=== PATIENT | female | born 1965 | race Caucasian/White ===

== ENCOUNTER 2016-07-08 10:38 | Emergency (ER) | payer SELFPAY ==
--- NOTE | 2016-07-08 11:41 | ER Document Report ---
ED Extremity Problem, Lower - General Chief Complaint: Leg Pain Stated Complaint: RIGHT LEG PAIN Mode of Arrival: Ambulatory Information source: Patient TRAVEL OUTSIDE OF THE [place] IN LAST 30 DAYS: No - HPI Patient complains to provider of: Pain Notes: The patient arrives with complaints of right cesar pain for the last 2 weeks. She denies any injury. She states that the pain seems to get worse when she is driving her car and flexing her foot. She denies any pain with touching the area. She denies any leg swelling. She denies any fever or redness. No rash. She denies any traumatic injury. She denies any nausea, vomiting, diarrhea. She denies any recent trips, recent surgeries, no hormones, no cancer, no history of DVT or PE, no chest pain or shortness of breath. She denies any numbness, tingling, weakness. No nausea vomiting diarrhea. - Related Data Allergies/Adverse Reactions: No Known Allergies Allergy (Verified 07/08/16 10:51) Past Medical History - Social History Smoking Status: Current Every Day Smoker Chew tobacco use (# tins/day): No Frequency of alcohol use: Social Drug Abuse: None Family History: Reviewed & Not Pertinent Patient has suicidal ideation: No Patient has homicidal ideation: No Renal/ Medical History: Denies: Hx Peritoneal Dialysis Past Surgical History: Reports: Hx Hysterectomy, Hx Orthopedic Surgery - Rt Shoulder, lower lumbar - Immunizations Hx Diphtheria, Pertussis, Tetanus Vaccination: Yes Review of Systems - Review of Systems -: Yes All other systems reviewed and negative Physical Exam - Vital signs Vitals: Temp Pulse Resp BP Pulse Ox 98.0 F 63 17 104/71 99 07/08/16 10:52 07/08/16 10:52 07/08/16 10:52 07/08/16 10:52 07/08/16 10:52 - Notes Notes: GENERAL: alert, cooperative, nontoxic, no distress. HEAD: normocephalic, atraumatic EYES: conjunctiva pink without discharge, no external redness or swelling. EARS: no external swelling, no external redness NOSE: atraumatic, no external swelling MOUTH/THROAT: mucous membranes moist and pink NECK: soft, supple, full range of motion, no meningismus. CHEST: no distress, lungs clear and equal throughout. No wheezing, rales, rhonchi. CARDIAC: regular rate and rhythm, no murmur, normal capillary refill, normal pulses. BACK: full range of motion, no CVA tenderness. EXTREMITIES: full range of motion of all extremities. No redness, no swelling. Patient has some mild tenderness to palpation to the right anterior cesar. There is no redness. No leg swelling otherwise. There is no calf tenderness. Normal pulse and sensation distally. No rash. NEURO: alert and oriented 3, no focal deficits, full range of motion of all extremities. PYSCH: appropriate mood, affect. Patient is cooperative. SKIN: pink, warm, dry, no rash. Course - Re-evaluation Re-evalutation: 07/08/16 12:20 Patient is nontoxic. Stable vitals. The patient has had anterior right cesar pain mainly when she is driving or dorsiflexing her foot for the last few weeks. The pain seems to be getting worse. She has no DVT risk factors and has no posterior calf pain tenderness or swelling. X-rays of the tib-fib show no acute abnormality. Possible she could be having an intermittent compartment syndrome in the cesar. This also potentially could be cesar splints. She has been dealing with this for several weeks, therefore think she warrants an orthopedic visit. Patient will be discharged home with NSAIDs and Ultram. Orthopedic referral. Follow-up with orthopedic in next available appointment. Follow-up sooner for increased pain, fever, redness, swelling, pain in the posterior calf, or any further concerns. The patient's emergency department workup and current diagnosis were explained to the patient and or family. Follow-up instructions were provided. Medications if prescribed were discussed. Instructions for when to return to the emergency department including specific worrisome symptoms were discussed with the patient and/or family. - Vital Signs Vital signs: Temp Pulse Resp BP Pulse Ox 98.0 F 63 17 104/71 99 07/08/16 10:52 07/08/16 10:52 07/08/16 10:52 07/08/16 10:52 07/08/16 10:52 Discharge - Discharge Clinical Impression: Pain in right cesar Condition: Stable Disposition: HOME, SELF-CARE Instructions: Leg Pain Nonspecific ([facility]) Additional Instructions: Take medications as prescribed. Apply ice to sore area. Try stretching your cesar. Awan with or so at the next available appointment. Follow-up sooner for increased pain, fever, redness, swelling, chest pain, shortness of breath, or any further concerns. Prescriptions: Diclofenac Sodium [Voltaren] 75 mg PO BID #20 tablet. Tramadol HCl [Ultram] 50 mg PO TID PRN #10 tablet PRN Reason:
[2016-07-08 12:58] VITALS: BP 107/57
== END 2016-07-08 12:55 | disposition home or self-care (01) ==
LOC: ER 10:38
DX: M79.604 Pain in right leg (principal); F17.200 Nicotine dependence, unspecified, uncomplicated; Z90.710 Acquired absence of both cervix and uterus
CPT/HCPCS: 99283

== ENCOUNTER 2016-09-20 23:01 | Emergency (ER) | payer SELFPAY ==
[2016-09-20 23:07] VITALS: BP 132/73
[2016-09-20] MEDS ORDERED: NAPROXEN 250 MG TABLET PO ONE (23:14)
--- NOTE | 2016-09-20 23:17 | ER Document Report ---
ED Extremity Problem, Lower - General Chief Complaint: Knee Pain Stated Complaint: FALL/KNEE PAIN Time Seen by Provider: 09/20/16 23:13 Notes: The patient is a 51-year-old female who presents with 2 weeks of right knee pain after she fell on it. She noticed swelling after the incident, but this has improved. She is using anti-inflammatories, ice, a knee brace and crutches intermittently for pain control. She denies numbness, tingling, open wounds, swelling, fevers or redness. TRAVEL OUTSIDE OF THE [place] IN LAST 30 DAYS: No - Related Data Allergies/Adverse Reactions: No Known Allergies Allergy (Verified 07/08/16 10:51) Past Medical History - General Information source: Patient - Social History Smoking Status: Unknown if Ever Smoked Family History: Reviewed & Not Pertinent Patient has suicidal ideation: No Patient has homicidal ideation: No Renal/ Medical History: Denies: Hx Peritoneal Dialysis Past Surgical History: Reports: Hx Hysterectomy, Hx Orthopedic Surgery - Rt Shoulder, lower lumbar - Immunizations Hx Diphtheria, Pertussis, Tetanus Vaccination: Yes Review of Systems - Review of Systems Notes: REVIEW OF SYSTEMS: CONSTITUTIONAL: -fevers, -chills EENT: -eye pain, -difficulty swallowing, -nasal congestion CARDIOVASCULAR:-chest pain, -syncope. RESPIRATORY: -cough, -SOB GASTROINTESTINAL: -abdominal pain, - nausea, -vomiting, -diarrhea GENITOURINARY: -dysuria, -hematuria MUSCULOSKELETAL: +right knee pain, -back pain, -neck pain SKIN: -rash or skin lesions. HEMATOLOGIC: -easy bruising or bleeding. LYMPHATIC: -swollen, enlarged glands. NEUROLOGICAL: -altered mental status or loss of consciousness, -headache, - neurologic symptoms PSYCHIATRIC: -anxiety, -depression. ALL OTHER SYSTEMS REVIEWED AND NEGATIVE. Physical Exam - Vital signs Vitals: Temp Pulse Resp BP Pulse Ox 98.1 F 87 18 132/73 H 96 09/20/16 23:05 09/20/16 23:05 09/20/16 23:05 09/20/16 23:05 09/20/16 23:05 - Notes Notes: PHYSICAL EXAMINATION: GENERAL: Well-appearing, well-nourished and in no acute distress. HEAD: Atraumatic, normocephalic. EYES: Pupils equal round and reactive to light, extraocular movements intact, sclera anicteric, conjunctiva are normal. ENT: nares patent, oropharynx clear without exudates. Moist mucous membranes. NECK: Normal range of motion, supple without lymphadenopathy LUNGS: Breath sounds clear to auscultation bilaterally and equal. No wheezes rales or rhonchi. HEART: Regular rate and rhythm without murmurs ABDOMEN: Soft, nontender, normoactive bowel sounds. No guarding, no rebound. No masses appreciated. EXTREMITIES: Mild swelling and effusion of right knee. No open wounds or erythema, non-tender knee. NEUROLOGICAL: Cranial nerves grossly intact. Normal speech, normal gait. Normal sensory and motor exams. PSYCH: Normal mood, normal affect. SKIN: Warm, Dry, normal turgor, no rashes or lesions noted. Course - Re-evaluation Re-evalutation: No evidence of a septic joint and no fractures on x-ray. Patient has evidence of a mild knee effusion after fall. Instructed her to continue anti- inflammatories, ice and knee brace and follow-up with orthopedics. She understands. - Vital Signs Vital signs: Temp Pulse Resp BP Pulse Ox 98.1 F 87 18 132/73 H 96 09/20/16 23:05 09/20/16 23:05 09/20/16 23:05 09/20/16 23:05 09/20/16 23:05 - Diagnostic Test Radiology reviewed: Image reviewed, Reports reviewed Radiology results interpreted by me: Right knee x-ray: small joint effusion Discharge - Discharge Clinical Impression: Knee effusion, right Contusion of right knee Qualifiers: Encounter type: initial encounter Qualified Code(s): S80.01XA - Contusion of right knee, initial encounter Condition: Stable Disposition: HOME, SELF-CARE Additional Instructions: Knee Effusion You have a fluid collection in the knee joint, called an effusion. This fluid build up can occur from irritation of the synovial membrane lining the knee joint or from a more serious injury to the knee. Irritation of the membrane can occur from excessive, repetitive knee activitiy, like kneeling or squatting for extended periods or even just excessive walking, jogging, or skiing. Effusions also can occur with infections in the joint and with some arthritic conditions, especially gout. Fluid collections in these situations are usually yellow in color and either clear or cloudy in appearance. Significant injury to the knee can result in fluid collection which is partly or entirely blood and this condition is known as a hemarthrosis of the knee joint. If the fluid collection is not too large and/or painful, it can be managed conservatively with rest, ice packs, and anti-inflammatory and pain medications as needed. If the fluid collection is large and very painful, the knee joint can be drained (aspirated) by a relatively minor procedure of inserting a needle in the joint and removing some or all of the fluid present. If your knee was aspirated, you should rest it as much as possible for a few days, keep a pressure dressing around the knee and apply ice packs for at least 48 - 72 hours. If there are signs of developing infection such as heat and redness of the knee, fever, etc. you should return immediately for a recheck. Contusion Your injury has resulted in a contusion -- a crushing of the deep tissues. No injury to important structures was detected during the physician's exam. Contusions vary in the amount of pain they cause, and in the length of time required for healing. Typically, the area will become bruised, and will remain painful to touch for two or three weeks. However, most patients are back to working and playing within a few days. After the initial period of rest and cold-packs, your symptoms (together with the doctor's recommendations) will determine how rapidly you can get back to full activity. Usually this means "do what feels okay, but don't do things that hurt." If re-examination was recommended, it's important to follow up as instructed. Call the doctor or return any time if pain increases, if swelling becomes severe, if you develop numbness or weakness in an injured extremity, or if any other alarming symptoms occur. Referrals: LAKIA SHERIDAN MD [ACTIVE STAFF] - Follow up as needed
--- NOTE | 2016-09-20 23:49 | RADIOLOGY REPORT (SQ) ---
EXAM DESCRIPTION: KNEE RIGHT 3 VIEWS COMPLETED DATE/TIME: 09/20/2016 11:29 pm REASON FOR STUDY: right knee pain COMPARISON: None. NUMBER OF VIEWS: Three views. TECHNIQUE: AP, lateral, and sunrise patella radiographic images acquired of the right knee. LIMITATIONS: None. FINDINGS: MINERALIZATION: Normal. BONES: No acute fracture or dislocation. No worrisome bone lesions. JOINT: Small joint effusion. SOFT TISSUES: No soft tissue swelling. No radio-opaque foreign body. OTHER: No other significant finding. IMPRESSION: SMALL JOINT EFFUSION. NO SIGNIFICANT BONY FINDINGS. TECHNICAL DOCUMENTATION: JOB ID: [id number] [employer]- All Rights Reserved
== END 2016-09-20 23:50 | disposition home or self-care (01) ==
LOC: ER 23:01
DX: S80.01XA Contusion of right knee, initial encounter (principal); M25.461 Effusion, right knee; M25.561 Pain in right knee; W19.XXXA Unspecified fall, initial encounter
CPT/HCPCS: 99283

== ENCOUNTER 2016-12-25 23:16 | Emergency (ER) | payer SELFPAY ==
[2016-12-26] MEDS ORDERED: HYDROMORPHONE HCL INJ/PF 2 MG/ML AMPULE IV ONE (00:38)
[2016-12-26] MEDS ORDERED: ONDANSETRON HCL INJ/PF 4 MG/2 ML SDV IV ONE (00:38)
--- NOTE | 2016-12-26 00:48 | ER Document Report ---
ED General - General Chief Complaint: Possible Kidney Stone Stated Complaint: POSSIBLE KIDNEY STONE Time Seen by Provider: 12/26/16 00:30 Mode of Arrival: Ambulatory Information source: Patient TRAVEL OUTSIDE OF THE [place] IN LAST 30 DAYS: No - HPI Notes: Patient is a 51-year-old female history of previous kidney stones, lumbar surgery and gastric lap band surgery presents with report of right flank pain intermittent and crampy consistent with previous history of kidney stones. Patient denies any numbness, paresthesia, nausea, incontinence, back injury acutely. - Related Data Allergies/Adverse Reactions: No Known Allergies Allergy (Verified 07/08/16 10:51) Past Medical History - Social History Smoking Status: Current Every Day Smoker Frequency of alcohol use: None Drug Abuse: None Lives with: Family Family History: Reviewed & Not Pertinent Patient has suicidal ideation: No Patient has homicidal ideation: No Pulmonary Medical History: Reports: Hx Asthma Renal/ Medical History: Denies: Hx Peritoneal Dialysis Past Surgical History: Reports: Hx Hysterectomy, Hx Orthopedic Surgery - Rt Shoulder, lower lumbar - Immunizations Hx Diphtheria, Pertussis, Tetanus Vaccination: Yes Review of Systems - Review of Systems Notes: REVIEW OF SYSTEMS: CONSTITUTIONAL : Denies fever, chills, or sweats. Denies recent illness. EENT: Denies eye, ear, throat, or mouth pain or symptoms. Denies nasal or sinus congestion or discharge. Denies throat, tongue, or mouth swelling or difficulty swallowing. CARDIOVASCULAR: Denies chest pain. Denies palpitations or racing or irregular heart beat. Denies ankle edema. RESPIRATORY: Denies cough, cold, or chest congestion. Denies shortness of breath, difficulty breathing, or wheezing. GASTROINTESTINAL: Denies abdominal pain or distention. Denies nausea, vomiting , or diarrhea. Denies blood in vomitus, stools, or per rectum. Denies black, tarry stools. Denies constipation. GENITOURINARY: Denies difficulty urinating, painful urination, burning, frequency, blood in urine, or discharge. FEMALE GENITOURINARY: Denies vaginal bleeding, heavy or abnormal periods, irregular periods. Denies vaginal discharge or odor. MUSCULOSKELETAL: Denies neck pain or stiffness. Denies joint pain or swelling. SKIN: Denies rash, lesions or sores. HEMATOLOGIC : Denies easy bruising or bleeding. LYMPHATIC: Denies swollen, enlarged glands. NEUROLOGICAL: Denies confusion or altered mental status. Denies passing out or loss of consciousness. Denies dizziness or lightheadedness. Denies headache. Denies weakness or paralysis or loss of use of either side. Denies problems with gait or speech. Denies sensory loss, numbness, or tingling. Denies seizures. PSYCHIATRIC: Denies anxiety or stress. Denies depression, suicidal ideation, or homicidal ideation. ALL OTHER SYSTEMS REVIEWED AND NEGATIVE. Dictation was performed using [employer] voice recognition software Physical Exam - Vital signs Vitals: Temp Pulse Resp BP Pulse Ox 97.7 F 71 16 120/72 97 12/25/16 23:36 12/25/16 23:36 12/25/16 23:36 12/25/16 23:36 12/25/16 23:36 - Notes Notes: PHYSICAL EXAMINATION: GENERAL: Well-appearing, well-nourished and in no acute distress. HEAD: Atraumatic, normocephalic. EYES: Pupils equal round and reactive to light, extraocular movements intact, conjunctiva are normal. ENT: Nares patent, oropharynx clear without exudates. Moist mucous membranes. NECK: Normal range of motion, supple without lymphadenopathy LUNGS: Breath sounds clear to auscultation bilaterally and equal. No wheezes rales or rhonchi. HEART: Regular rate and rhythm without murmurs ABDOMEN: Soft, nontender, nondistended abdomen. No guarding, no rebound. No masses appreciated. Port site right mid abdomen from lap band surgery appears appropriate. Female : deferred Musculoskeletal: Normal range of motion, no pitting or edema. No cyanosis. Right CVA tenderness. No midline tenderness. The patient does have a midline lumbar surgical scar which is well-healed. NEUROLOGICAL: Cranial nerves grossly intact. Normal speech, normal gait. Normal sensory, motor exams PSYCH: Normal mood, normal affect. SKIN: Warm, Dry, normal turgor, no rashes or lesions noted. Course - Re-evaluation Re-evalutation: 12/26/16 00:48 Patient was given IV Zofran and Dilaudid with adequate relief of pain. No evidence for renal stone or aneurysm or diverticulitis or UTI. Findings fit with a back strain. There is no radiation down the legs or incontinence suggestive for acute herniated disc pathology. 12/26/16 02:09 - Vital Signs Vital signs: Temp Pulse Resp BP Pulse Ox 97.7 F 71 16 120/72 97 12/25/16 23:36 12/25/16 23:36 12/25/16 23:36 12/25/16 23:36 12/25/16 23:36 - Laboratory Result Diagrams: 12/26/16 00:45 12/26/16 00:45 Laboratory results interpreted by me: 12/26/16 12/26/16 00:45 00:45 Hgb 15.7 H MCHC 36.1 H Sodium 147.9 H Glucose 114 H Discharge - Discharge Clinical Impression: Renal cyst Back strain Qualifiers: Encounter type: initial encounter Qualified Code(s): S39.012A - Strain of muscle, fascia and tendon of lower back, initial encounter Condition: Stable Disposition: HOME, SELF-CARE Instructions: Low Back Pain ([facility]) Prescriptions: Ibuprofen 800 mg PO Q8HP PRN #30 tablet PRN Reason: Cyclobenzaprine HCl [Flexeril 10 mg Tablet] 10 mg PO TIDP PRN #25 tab PRN Reason:
[2016-12-26 01:02] LABS: ABSOLUTE BASOPHILS # (AUTO) 0.1 10^3/uL (0.0-0.2); ABSOLUTE EOSINOPHILS # (AUTO) 0.2 10^3/uL (0.0-0.6); ABSOLUTE LYMPHOCYTES (AUTO) 2.4 10^3/uL (0.5-4.7); ABSOLUTE MONOCYTES (AUTO) 0.4 10^3/uL (0.1-1.4); ABSOLUTE NEUT (AUTO) 4.3 10^3/uL (1.7-8.2); BASOPHILS % (AUTO) 0.9 % (0-2); EOSINOPHILS % (AUTO) 2.3 % (0-6); HEMATOCRIT 43.6 % (36.0-47.0); HEMOGLOBIN 15.7 g/dL (12.0-15.5); HGB HCT DIFFERENCE 3.5; MEAN CORPUSCULAR HEMOGLOBIN 31.4 pg (27.0-33.4); MEAN CORPUSCULAR HGB CONC 36.1 g/dL (32.0-36.0); MEAN CORPUSCULAR VOLUME 87 fl (80-97); MONOCYTES % (AUTO) 5.4 % (3-13); RED BLOOD COUNT 5.01 10^6/uL (3.72-5.28); SEGMENTED NEUTROPHILS % (AUTO) 58.4 % (42-78); WHITE BLOOD COUNT 7.3 10^3/uL (4.0-10.5)
[2016-12-26 01:15] LABS: APPEARANCE,URINE SLIGHTLY-CLOUDY; BILIRUBIN,URINE NEGATIVE (NEGATIVE); GLUCOSE, URINE NEGATIVE (NEGATIVE); KETONES,URINE NEGATIVE (NEGATIVE); LEUKOCYTE ESTERASE,URINE NEGATIVE (NEGATIVE); NITRITE,URINE NEGATIVE (NEGATIVE); PROTEIN,URINE NEGATIVE (NEGATIVE); URINE SPECIFIC GRAVITY 1.028; UROBILINOGEN,URINE NEGATIVE mg/dL (<2.0)
[2016-12-26 01:18] LABS: ALANINE AMINOTRANSFERASE 40 U/L (9-52); ALBUMIN 4.9 g/dL (3.5-5.0); ALKALINE PHOSPHATASE 74 U/L (38-126); ANION GAP 16 (5-19); ASPARTATE AMINO TRANSFERASE 23 U/L (14-36); BILIRUBIN,DIRECT 0.3 mg/dL (0.0-0.4); BILIRUBIN,TOTAL 0.6 mg/dL (0.2-1.3); BLOOD UREA NITROGEN 20 mg/dL (7-20); CALCIUM 9.5 mg/dL (8.4-10.2); CARBON DIOXIDE 27 mmol/L (22-30); CHLORIDE 105 mmol/L (98-107); CREATININE RESULT 0.66 mg/dL (0.52-1.25); GLUCOSE 114 mg/dL (75-110); LIPASE 49.5 U/L (23-300); POTASSIUM 4.1 mmol/L (3.6-5.0); SODIUM 147.9 mmol/L (137-145); TOTAL PROTEIN 7.9 g/dL (6.3-8.2)
--- NOTE | 2016-12-26 01:29 | RADIOLOGY REPORT (SQ) ---
EXAM DESCRIPTION: CT LTD RENAL STONE PROTOCOL ON COMPLETED DATE/TIME: 12/26/2016 1:16 am REASON FOR STUDY: R flank pain, hx renal stones COMPARISON: None. TECHNIQUE: CT scan of the abdomen and pelvis performed without intravenous or oral contrast. Images reviewed with lung, soft tissue, and bone windows. Reconstructed coronal and sagittal MPR images revi ewed. All images stored on PACS. All CT scanners at this facility use dose modulation, iterative reconstruction, and/or weight based d osing when appropriate to reduce radiation dose to as low as reasonably achievable (ALARA). [facility]: Dose Right [facility]: CareDose [facility]: Dose Right [facility]: Teradose 4D [facility]: Smart SonicPollen RADIATION DOSE: Up-to-date CT equipment and radiation dose reduction techniques were employed. CTDIv ol: 14.1 mGy. DLP: 780 mGy-cm.mGy. LIMITATIONS: None. FINDINGS: LOWER CHEST: No consolidation or pleural effusion. NON-CONTRASTED LIVER, SPLEEN, ADRENALS: Evaluation limited by lack of IV contrast. No identified sign ificant masses. PANCREAS: No peripancreatic inflammatory changes. GALLBLADDER: Present. RIGHT KIDNEY AND URETER: There is a 3.6 cm cyst at the inferior pole of the right kidney. No signifi cant calcifications. No hydronephrosis or hydroureter. LEFT KIDNEY AND URETER: No significant calcifications. No hydronephrosis or hydroureter. AORTA AND RETROPERITONEUM: No abdominal aortic aneurysm. No retroperitoneal masses or adenopathy. BOWEL AND PERITONEAL CAVITY: The patient is status post lap band procedure. No dilated bowel loops o r inflammatory changes. No free fluid. APPENDIX: Not visualized. PELVIS, BLADDER, AND ABDOMINAL WALL:The urinary bladder is decompressed. The uterus is surgically ab sent. No free fluid. The reservoir of the lap band procedure is seen in the anterior right sided so ft tissues. BONES: Postsurgical changes with orthopedic hardware transfixing the L5 and S1 vertebral bodies. Deg enerative disc disease with vacuum disc phenomenon at L4-L5. IMPRESSION: No urinary tract calculi or hydronephrosis. No acute findings on unenhanced CT. COMMENT: Quality ID # [id number]: Final reports with documentation of one or more dose reduction techniques (e.g., Automated exposure control, adjustment of the mA and/or kV according to patient size, use of iterative reconstruction technique) TECHNICAL DOCUMENTATION: JOB ID: [id number] 2010 [facility] [employer]- All Rights Reserved
[2016-12-26] MEDS ORDERED: IBUPROFEN 800 MG TABLET PO ONE (02:01)
[2016-12-26] MEDS ORDERED: CYCLOBENZAPRINE HCL 10 MG TABLET PO ONE (02:01)
[2016-12-26 02:35] VITALS: BP 114/67
== END 2016-12-26 02:30 | disposition home or self-care (01) ==
LOC: ER 23:16
DX: S39.012A Strain of muscle, fascia and tendon of lower back, initial encounter (principal); X58.XXXA Exposure to other specified factors, initial encounter; Q61.01 Congenital single renal cyst; J45.909 Unspecified asthma, uncomplicated; F17.200 Nicotine dependence, unspecified, uncomplicated; Z87.442 Personal history of urinary calculi; Z98.84 Bariatric surgery status; Z98.890 Other specified postprocedural states
CPT/HCPCS: 99284; 96374; 96375; 36415; 83690; 85025; 80053; 81001; 76380; J1170; J2405

== ENCOUNTER 2017-03-03 01:19 | Emergency (ER) | payer SELFPAY ==
[2017-03-03 01:40] VITALS: BP 108/66
--- NOTE | 2017-03-03 01:57 | ER Document Report ---
ED GI/ - General Chief Complaint: Urinary Problem Stated Complaint: BLOOD IN URINE Time Seen by Provider: 03/03/17 01:56 Mode of Arrival: Ambulatory Information source: Patient Notes: 51 years old female presents today with dysuria frequency and urgency as well as hematuria of one day duration. Slight suprapubic discomfort otherwise no nausea vomiting fever chills. TRAVEL OUTSIDE OF THE [place] IN LAST 30 DAYS: No - Related Data Allergies/Adverse Reactions: No Known Allergies Allergy (Verified 03/03/17 01:32) Home Medications: Current Home Medications Ropinirole HCl [Requip Xl] 1 tab PO DAILY 03/03/17 [History] Ropinirole HCl [Ropinirole HCl] 1 tab PO DAILY 03/03/17 [History] Ropinirole HCl [Ropinirole HCl] 1 tab PO QAM 03/03/17 [History] Past Medical History - Social History Smoking Status: Former Smoker Family History: Reviewed & Not Pertinent Pulmonary Medical History: Reports: Hx Asthma Renal/ Medical History: Denies: Hx Peritoneal Dialysis Past Surgical History: Reports: Hx Hysterectomy, Hx Orthopedic Surgery - Rt Shoulder, lower lumbar - Immunizations Hx Diphtheria, Pertussis, Tetanus Vaccination: Yes Review of Systems - Review of Systems Notes: REVIEW OF SYSTEMS: CONSTITUTIONAL : Denies fever, chills, or sweats. Denies recent illness. EENT: Denies eye, ear, throat, or mouth pain or symptoms. Denies nasal or sinus congestion or discharge. Denies throat, tongue, or mouth swelling or difficulty swallowing. CARDIOVASCULAR: Denies chest pain. Denies palpitations or racing or irregular heart beat. Denies ankle edema. RESPIRATORY: Denies cough, cold, or chest congestion. Denies shortness of breath, difficulty breathing, or wheezing. GASTROINTESTINAL: Denies abdominal pain or distention. Denies nausea, vomiting , or diarrhea. Denies blood in vomitus, stools, or per rectum. Denies black, tarry stools. Denies constipation. GENITOURINARY: FEMALE GENITOURINARY: Denies vaginal bleeding, heavy or abnormal periods, irregular periods. Denies vaginal discharge or odor. MUSCULOSKELETAL: Denies back or neck pain or stiffness. Denies joint pain or swelling. SKIN: Denies rash, lesions or sores. HEMATOLOGIC : Denies easy bruising or bleeding. LYMPHATIC: Denies swollen, enlarged glands. NEUROLOGICAL: Denies confusion or altered mental status. Denies passing out or loss of consciousness. Denies dizziness or lightheadedness. Denies headache. Denies weakness or paralysis or loss of use of either side. Denies problems with gait or speech. Denies sensory loss, numbness, or tingling. Denies seizures. PSYCHIATRIC: Denies anxiety or stress. Denies depression, suicidal ideation, or homicidal ideation. ALL OTHER SYSTEMS REVIEWED AND NEGATIVE. PHYSICAL EXAMINATION: GENERAL: Well-appearing, well-nourished and in no acute distress. HEAD: Atraumatic, normocephalic. EYES: Pupils equal round and reactive to light, extraocular movements intact, conjunctiva are normal. ENT: Nares patent, oropharynx clear without exudates. Moist mucous membranes. NECK: Normal range of motion, supple without lymphadenopathy LUNGS: Breath sounds clear to auscultation bilaterally and equal. No wheezes rales or rhonchi. HEART: Regular rate and rhythm without murmurs ABDOMEN: Soft, nontender, nondistended abdomen. No guarding, no rebound. No masses appreciated. Female : deferred Musculoskeletal: Normal range of motion, no pitting or edema. No cyanosis. NEUROLOGICAL: Cranial nerves grossly intact. Normal speech, normal gait. Normal sensory, motor exams PSYCH: Normal mood, normal affect. SKIN: Warm, Dry, normal turgor, no rashes or lesions noted. Dictation was performed using [employer] voice recognition software Physical Exam - Vital signs Vitals: Temp Pulse Resp BP Pulse Ox 98.0 F 92 18 108/66 96 03/03/17 01:39 03/03/17 01:39 03/03/17 01:39 03/03/17 01:39 03/03/17 01:39 Course - Re-evaluation Re-evalutation: 03/03/17 02:41 She has been asked to drink lots of water. Urine report discussed. - Vital Signs Vital signs: Temp Pulse Resp BP Pulse Ox 98.0 F 92 18 108/66 96 03/03/17 01:39 03/03/17 01:39 03/03/17 01:39 03/03/17 01:39 03/03/17 01:39 - Laboratory Laboratory results interpreted by me: 03/03/17 01:45 Urine Blood MODERATE H Urine Urobilinogen 2.0 H Ur Leukocyte Esterase SMALL H Discharge - Discharge Clinical Impression: UTI (urinary tract infection) Qualifiers: Urinary tract infection type: acute cystitis Hematuria presence: with hematuria Qualified Code(s): N30.01 - Acute cystitis with hematuria Condition: Fair Disposition: HOME, SELF-CARE Instructions: Trimethoprim-Sulfa ([facility]), Urinary Tract Infection, Child ([facility]) Prescriptions: Sulfamethoxazole/Trimethoprim [Bactrim Ds Tablet] 1 each PO BID #20 tablet
[2017-03-03 02:26] LABS: APPEARANCE,URINE SLIGHTLY-CLOUDY; BILIRUBIN,URINE NEGATIVE (NEGATIVE); GLUCOSE, URINE NEGATIVE (NEGATIVE); KETONES,URINE NEGATIVE (NEGATIVE); LEUKOCYTE ESTERASE,URINE SMALL (NEGATIVE); NITRITE,URINE NEGATIVE (NEGATIVE); PROTEIN,URINE NEGATIVE (NEGATIVE); URINE SPECIFIC GRAVITY 1.029
[2017-03-03] MEDS ORDERED: SULFAMETHOXAZOLE/TRIMETHOPRIM 800-160 MG TABLET PO ONE (02:43)
== END 2017-03-03 03:10 | disposition home or self-care (01) ==
LOC: ER 01:19
DX: N30.01 Acute cystitis with hematuria (principal); R30.0 Dysuria; R35.0 Frequency of micturition; R39.15 Urgency of urination; Z87.891 Personal history of nicotine dependence; Z79.899 Other long term (current) drug therapy
CPT/HCPCS: 81001; 81025; 99283